=== PATIENT | female | born 1995 | race Caucasian/White ===

== ENCOUNTER 2024-11-29 20:38 | Outpatient (CLI) | payer BC, SELFPAY ==
[2024-11-29 20:46] VITALS: BMI 31.2
[2024-11-29 21:11] VITALS: BP 147/71; PULSE 83
--- NOTE | 2024-11-29 21:18 | USR_ITS ---
PROCEDURE INFORMATION: Exam: US Biophysical Profile Without Non-Stress Test Exam date and time: 11/29/2024 9:32 PM Age: 29 years old Clinical indication: Other: Possible rom; ; G2-p1-a0-l1 with brie 01/31/2025 31w0d presenting with possible rupture of membranes TECHNIQUE: Imaging protocol: US biophysical profile without non-stress testing. COMPARISON: No relevant prior studies available. FINDINGS: heart rate: 132 bpm presentation and position: Cephalic Placenta: Anterior grade 2 placenta without previa. Amniotic fluid (Qualitative): Amniotic fluid volume is normal. Amniotic fluid index: CAIO is 18.38 cm. BIOPHYSICAL PROFILE: breathing (BPP): 2 /2 gross body movement (BPP): 2 /2 tone (BPP): 0 /2 Amniotic fluid (BPP): 2 /2 Biophysical profile score (BPP): 6 /8 MATERNAL ANATOMY: Cervix: Cervical length measures 3.6 cm. US/US OB BPP wo NST [address] IMPRESSION: Biophysical profile score is 6 out of 8.
[2024-11-29 21:34] LABS: Glucose Urine UA Negative (Normal); Nitrate Urine Negative (Negative); Specific Gravity, Urine 1.013 (1.005-1.030)
[2024-11-29 21:39] LABS: Add Urine Microscopic? YES
[2024-11-29 22:04] LABS: UPRO/UCREAT Ratio 0.12 mg/mg CR
[2024-11-29 22:16] VITALS: BP 139/81; PULSE 81
[2024-11-29 22:47] LABS: Hematocrit 36.4 % (36-47); Hemoglobin 12.40 g/dL (11.27-16.99); Mean Corpuscular HGB Conc 34.1 g/dL (30-55); Mean Corpuscular Hemoglobin 30.4 pg (27-33); Mean Corpuscular Volume 89.2 fl (85-98); Nucleated Red Blood Cells % 0 %; Platelet Count 368 10^3/cmm (157-399); Red Blood Count 4.08 10^6/uL (3.85-5.65); White Blood Count 16.36 10^3/uL (3.29-11.43)
[2024-11-29 23:02] LABS: Alanine Aminotransferase 23 U/L (0-33); Albumin Level 3.7 g/dL (3.5-5.2); Alkaline Phosphatase 108 U/L (35-105); Aspartate Amino Transferase 21 U/L (0-32); Blood Urea Nitrogen 8 mg/dL (6-20); Calcium 9.0 mg/dL (8.5-10.5); Carbon Dioxide 18 mmol/L (22-29); Chloride 105 mmol/L (98-107); Creatinine Clr Calc Pharmacy 191.7318; Globulin 2.4 g/dL (1.3-4.6); Glucose 83 mg/dL (65-115); Osmolality Calculated 283 mOsm/kg (285-295); Sodium 138 mmol/L (136-145); Total Protein 6.1 g/dL (6.6-8.7); Uric Acid 3.8 mg/dL (2.4-5.7)
[2024-11-29 23:04] LABS: Anion Gap 18.9 (5-19); Potassium 3.9 mmol/L (3.5-5.1)
[2024-11-29 23:13] VITALS: BP 161/80; PULSE 81
[2024-11-29 23:28] VITALS: BP 139/72; PULSE 85
[2024-11-29 23:30] VITALS: BP 143/72; PULSE 92
[2024-11-30] VITALS (32 sets, daily range): BP systolic 114–135; BP diastolic 69–78; PULSE 71–104; RESP 16–18; TEMP 35.4–36.6; O2SAT 81–100
--- NOTE | 2024-11-30 07:54 | PM.HP ---
Providers/Chief Complaint Chief Complaint: Possible ROM History of Present Illness Tanja Flynn is a G2, P1 with IUP of 31 weeks 0 days ,29 year old female arriving at 10 PM complaining of leaking of fluid and bleeding while outdoors with in [place]. States positive movements and no other symptoms. Denies abdominal trauma fundal tenderness or fever. Patient is visiting the area but she is originally from [place] where she gets her care with Dr. Mitzy Rodríguez. Obstetrical history with previous section at term due to failed induction and preeclampsia. Denies any allergies and currently taking vitamin and baby aspirin daily. Review of Systems General: Reports: 10 or more systems reviewed and unremarkable except in HPI and below Const: Denies: fever(s), chills or body aches Resp: Denies: dyspnea GI: Denies: abdominal pain, nausea or vomiting : Reports: vaginal bleeding; Denies: flank pain, difficulty voiding, dysuria, urinary urgency, hematuria, genital lesions, pelvic pain or sexual dysfunction Neuro: Denies: headache(s), confusion or Slurred speech present Psych: Denies: anxiety or depression Medications/Allergies Home Medications ?Medication ?Instructions ?Recorded ?Confirmed ?Last Taken ?Type 1 tab PO DAILY 11/29/24 11/29/24 Unknown History aspirin 81 mg chewable tablet 81 mg PO DAILY 11/29/24 11/29/24 Unknown History Allergies Allergy/AdvReac Type Severity Reaction Status Date / Time lavender (Lavandula Allergy ADR-Itching Verified 11/29/24 23:38 angustifolia) PFSH Acute PFSH: Medical History (Updated 11/30/24 @ 08:14 by Burke Madrid MD) Hx of pre-eclampsia in prior , currently Surgical History (Updated 11/30/24 @ 08:13 by Burke Madrid MD) History of delivery, antepartum Female Reproductive History: : 2 Para: 1 Vitals/I&O/Wt Last Vital Signs Temp 97.3 F L 11/30/24 06:12 Pulse 71 11/30/24 06:38 Resp 18 11/30/24 06:59 BP 124/77 11/30/24 06:38 O2 Del Method Room Air 11/29/24 23:31 Weight last 48 hrs Weight 199 lb 8 oz Physical Exam : SPECULUM EXAM - VAGINA: No vaginal bleeding and No Vaginal discharge present SPECULUM EXAM - CERVIX: Yes Cervical os closed, No Cervical bleeding, No watery cervix, No Abnormal cervical discharge present, No Cervical lesion present and No Cervical tenderness present OB/EXTERNAL & SPECULUM: external exam normal; no bleeding, vaginal bleeding and vaginal discharge AMNIOTIC FLUID: other (IGFVP-1 positive) Data 11/29/24 22:37 11/29/24 22:32 US OB: My impression: Normal CAIO of 18.4 and cervical length of 3.6cm A&P Assessment and plan 1. premature rupture of membranes in third trimester, unspecified duration to onset of labor: 2. Hx of pre-eclampsia in prior , currently : 3. History of delivery, antepartum: 4. 31 weeks gestation of : Plan: PROM of 31 weeks 1 day, spontaneous, less than 24 hours without signs of infection. No antibiotic allergies. Patient not currently in labor or showing uterine contractions. Physical exam was negative for gross leaking of fluid with straining and ferning was also negative. OB ultrasound findings with normal CAIO and cervical length. IGFBP 1 testing done and it was positive but because of the discordance between the physical exam, clinical findings,ultrasound and IGF BP 1 testing with possibility of false positive, a repeat testing was performed and was also positive. Protocol for premature rupture of membranes started. Magnesium sulfate for neuroprotection, antibiotics and corticosteroid were started. This included the transferring of patient to a hospital with higher level of OB care. At patient's request, [facility] in [facility] was contacted and found to be on delay status for their NICU unit. [facility] in [facility] was also on a delay status. Patient and were notified of this and they agreed to transfer to [facility]. the hospital was contacted and Dr. Verdin accepted the transfer. Ground transportation is being arranged. Patient continues to be in stable condition nondilated, not renetta and without any signs of or maternal infection. PDMP PDMP Reviewed: Not Reviewed Attestations Medical Necessity Statement*: Medical necessity attestation. Patient evaluated and found to have premature rupture membranes requiring admission, treatment and transfer to a higher level facility. Coding Level of Care Code Acute Code for Chg Fwd Diagnoses premature rupture of membranes in third trimester, unspecified duration to onset of labor O42.913 PROM gestational age: -third trimester PROM onset of labor timing: unspecified duration between rupture of membranes and onset of labor Hx of pre-eclampsia in prior , currently O09.299 History of delivery, antepartum O34.219 31 weeks gestation of Z3A.31
[2024-11-30] MEDS: magnesium sulfate premix 4 GM/100 ML PREMIX IV (08:03)
[2024-11-30] MEDS: betamethasone susp 6 mg/mL 5 mL 12 MG IM (08:09)
[2024-11-30] MEDS: magnesium sulfate premix 20 GM/500 ML BAG IV (08:12)
--- NOTE | 2024-11-30 09:18 | PC.NURSE ---
Per Dr Madrid, no SVE to be done. Cervix closed and long per ultrasound.
--- NOTE | 2024-11-30 09:46 | PC.NURSE ---
[id number] MARCO A BLANDON RN ASKED DR. GUERRERO IF HE WANTED A VE PRIOR TO DISCHARGE AND HE SAID NO. BHAVIK QUIÑONEZ HERE AT THIS TIME
== END 2024-12-01 05:52 | disposition short-term general hospital (02) ==
LOC: OPOB 20:53 → OBGYN 21:00
PROVIDERS: Visit Provider Obstetrics & Gynecology
DX: O26.899 Other specified pregnancy related conditions, unspecified trimester (principal); Z3A.00 Weeks of gestation of pregnancy not specified; N89.8 Other specified noninflammatory disorders of vagina
CPT/HCPCS: 12345; 36415; 51702; 59025; 76819; 80053; 81001; 82570; 83615; 84112; 84156; 84550; 85025; 86850; 86900; 87081; 99211; G0378; J7120